=== PATIENT | male | born 2000 | race Caucasian/White ===

== ENCOUNTER 2023-07-29 23:02 | Emergency (ER) | payer OTHER ==
[~2023-07-29] VITALS: Ht 195.6 cm; Wt 129.5 kg
[2023-07-29 23:05] VITALS: TEMP 98.6
[2023-07-29] MEDS ORDERED: LORazepam 2 MG/ML 1 ML VIAL IV ONE (23:45)
[2023-07-29] MEDS ORDERED: Ketorolac 30 MG/ML VIAL IV ONE (23:45)
[2023-07-29 23:54] LABS: BASO # 0.1 K/mm3 (0.0-0.2); BASO % 1.3 % (0.0-2.0); EOS # 0.1 K/mm3 (0.0-0.7); EOS % 1.3 % (0.0-4.0); GRAN # 3.6 K/mm3 (1.4-6.5); GRAN % 44.8 % (42.2-75.2); HEMATOCRIT 47.5 % (42.0-52.0); HEMOGLOBIN 15.8 g/dl (13.5-18.0); LYMPH # 3.3 K/mm3 (1.2-3.4); MEAN CELL VOLUME 91 fl (80.0-100.0); MEAN CORPUSCULAR HEMOGLOBIN 30 pg (27-31); MEAN CORPUSCULAR HGB CONC 33 g/dl (33.0-37.0); MEAN PLATELET VOLUME 9.8 fl (7.4-10.4); MONO # 0.8 K/mm3 (0.1-0.6); MONO % 10.3 % (1.7-9.3); PLATELET COUNT 266 K/mm3 (130-400); RED BLOOD COUNT 5.22 M/mm3 (4.20-5.60); REDCELL DISTRIBUTION WIDTH-CV 12.7 % (11.5-14.5)
[2023-07-30 00:12] LABS: ALANINE AMINOTRANSFERASE 42 U/L (0-55); ALBUMIN 4.1 g/dL (3.5-5.0); ALKALINE PHOSPHATASE 66 U/L (40-150); ANION GAP 10 mmol/L (7-16); AST,SGOT 37 U/L (5-34); BILIRUBIN,TOTAL 0.4 mg/dL (0.2-1.2); BLOOD UREA NITROGEN 16 mg/dL (9-21); CALCIUM 9.2 mg/dL (8.4-10.2); CHLORIDE 107 mEq/L (98-107); CREATININE, serum 1.37 mg/dL (0.72-1.25); GLUCOSE 81 mg/dL (70-99); LIPASE 53 U/L (8-78); POTASSIUM 3.9 mEq/L (3.5-4.5); SODIUM 141 mEq/L (136-145); TOTAL PROTEIN 7.3 g/dl (6.2-8.1)
[2023-07-30 00:19] LABS: TROPONIN-I < 0.010 ng/mL (0.00-0.033)
[2023-07-30] MEDS ORDERED: PRIL40 PO (00:40)
[2023-07-30] MEDS ORDERED: Mag/Al Hydrox/Simeth Susp 30 ML CUP PO ONE (00:45)
[2023-07-30 00:47] VITALS: BP 121/79; PULSE 71
== END 2023-07-30 00:45 | disposition home or self-care (01) ==
LOC: COL.ER 23:02
PROVIDERS: Nurse Practitioner
DX: R07.89 Other chest pain (principal); F32.A Depression, unspecified; F17.290 Nicotine dependence, other tobacco product, uncomplicated
CPT/HCPCS: J1885; J2060